=== PATIENT | female | born 1950 | race American Indian/Alaskan Native ===

== ENCOUNTER 2016-08-20 03:59 | Emergency (ER) | payer MEDICARE ==
[2016-08-20 05:25] LABS: Basophils % (Auto) 0.5 % (0.0-1.8); Eosinophils % (Auto) 1.1 % (0.0-4.3); Hematocrit 36.8 % (30.3-42.9); Hemoglobin 11.7 gm/dl (10.1-14.3); Mean Corpuscular HGB Conc 32 % (30-34); Mean Corpuscular Hemoglobin 27 pg (28-32); Mean Corpuscular Volume 86 fl (79-97); Platelet Count 183 K/mm3 (140-440); Red Blood Count 4.31 M/mm3 (3.65-5.03); Red Cell Distribution Width 14.1 % (13.2-15.2); White Blood Count 5.4 K/mm3 (4.5-11.0)
[2016-08-20 05:43] LABS: Alanine Aminotransferase 11 units/L (7-56); Albumin/Globulin Ratio 1.2 %; Alkaline Phosphatase 50 units/L (35-129); Anion Gap 20 mmol/L; BUN/Creatinine Ratio 14.28; Blood Urea Nitrogen 10 mg/dL (7-17); Calcium 9.9 mg/dL (8.4-10.2); Carbon Dioxide 22 mmol/L (22-30); Chloride 101.3 mmol/L (98-107); Glucose 99 mg/dL (65-100); Lipase 31 units/L (13-60); Potassium 3.2 mmol/L (3.6-5.0); Sodium 140 mmol/L (137-145); Total Protein 7.3 g/dL (6.3-8.2)
[2016-08-20 06:57] LABS: Bacteria,Urine 1+ /HPF (Negative); Bilirubin,Urine NEG (Negative); Blood,Urine NEG (Negative); Ketones,Urine NEG (Negative); Leukocyte Esterase,Urine LG (Negative); Mucus,Urine 1+ /HPF; Nitrite,Urine NEG (Negative)
[2016-08-20] MEDS ORDERED: K-DUR PO ONE (08:42)
[2016-08-20] MEDS ORDERED: CATAPRES PO ONE (09:10)
--- NOTE | 2016-08-20 09:10 | Emergency Department Report ---
ED Female HPI - General Chief complaint: Abdominal Pain Stated complaint: NOT FEELING WELL/VAG DISCHARGE Time Seen by Provider: 08/20/16 08:41 Source: patient, EMS Mode of arrival: Ambulatory Limitations: No Limitations - History of Present Illness Initial comments: 65 year old female with a past medical history hypertension, bipolar disorder, schizophrenia and previous hysterectomy presents to the hospital complains of lower abdominal pain and vaginal discharge 2 weeks. Pain is rated 4/10 in intensity, intermittent, without aggravating or alleviating factors. Unable to characterize pain. Patient complains of mild malodorous discharge. Last sexual intercourse was one month ago with a regular partner and she did not use condoms. Patient also complains of elevated blood pressure. She takes metoprolol twice a day (50mg), possibly simvastatin, and a medication that starts with Cor. She cannot recall all the names and, doses, and does not have her pills with her. Patient tells me her last dose of medication was yesterday evening. She denies headache, chest pain, shortness, dysuria, nausea, vomiting, or fever - Related Data Home Medications Medication Instructions Recorded Confirmed Last Taken Aspirin [Aspirin BABY CHEW TAB] 81 mg PO DAILY 08/18/13 03/29/14 Unknown Metoprolol [Lopressor TAB] 25 mg PO BID 08/18/13 03/29/14 Unknown Potassium Chloride [Klor-Con 10] 20 meq PO DAILY 08/18/13 03/29/14 Unknown Previous Rx's Medication Instructions Recorded Last Taken Type Amlodipine Besylate [Norvasc] 2.5 mg PO DAILY #30 tab 08/19/13 Unknown Rx Benztropine Mesylate [Benztropine 2 mg PO QDAY #30 tab 08/19/13 Unknown Rx Mesylate INJ] Diphenhydramine HCl 25 mg PO BID #60 cap 08/19/13 Unknown Rx [diphenhydrAMINE] Benztropine [Cogentin] 2 mg PO QDAY #30 tablet 10/25/15 Unknown Rx Nitrofurantoin [place]/M-Cryst 100 mg PO Q12HR #10 capsule 08/20/16 Unknown Rx [Macrobid CAP] Allergies Allergy/AdvReac Type Severity Reaction Status Date / Time No Known Allergies Allergy Verified 03/01/15 09:55 ED Review of Systems ROS: Stated complaint: NOT FEELING WELL/VAG DISCHARGE Other details as noted in HPI Comment: All other systems reviewed and negative Other: Constitutional: No fevers chills Eyes: No eye pain visual changes ENT: No ear pain or throat pain Neck: Denies pain Respiratory: Denies cough wheezing shortness of breath Cardiovascular: Denies chest pain, palpitations, syncope GI: Denies nausea, vomiting, diarrhea : Denies dysuria Musculoskeletal: Denies back stas Neurologic: Denies headache, numbness, weakness Psychiatric: Denies suicidal ideation, hallucinations ED Past Medical Hx - Past Medical History Previous Medical History?: Yes Hx Hypertension: Yes Hx Psychiatric Treatment: Yes (MANIC BIPOLAR AND SCHIZOPHRENIA and depression) - Surgical History Past Surgical History?: Yes Additional Surgical History: HYSTERECTOMY, - Social History Smoking Status: Current Every Day Smoker Substance Use Type: Alcohol, Marijuana - Medications Home Medications: Home Medications Medication Instructions Recorded Confirmed Last Taken Type Aspirin [Aspirin BABY CHEW TAB] 81 mg PO DAILY 08/18/13 03/29/14 Unknown History Metoprolol [Lopressor TAB] 25 mg PO BID 08/18/13 03/29/14 Unknown History Potassium Chloride [Klor-Con 10] 20 meq PO DAILY 08/18/13 03/29/14 Unknown History Amlodipine Besylate [Norvasc] 2.5 mg PO DAILY #30 tab 08/19/13 03/29/14 Unknown Rx Benztropine Mesylate [Benztropine 2 mg PO QDAY #30 tab 08/19/13 03/29/14 Unknown Rx Mesylate INJ] Diphenhydramine HCl 25 mg PO BID #60 cap 08/19/13 03/29/14 Unknown Rx [diphenhydrAMINE] Benztropine [Cogentin] 2 mg PO QDAY #30 tablet 10/25/15 Unknown Rx Nitrofurantoin [place]/M-Cryst 100 mg PO Q12HR #10 capsule 08/20/16 Unknown Rx [Macrobid CAP] ED Physical Exam - General Limitations: No Limitations - Other Other exam information: General: No limitations, patient is alert in no acute distress Head exam: Atraumatic, normocephalic Eyes exam: Normal appearance ENT: Moist mucous membrane, normal oropharynx Neck exam: Normal inspection, full range of motion Respiratory exam: Clear to auscultation bilateral, no wheezes, rales, crackles Cardiovascular: Normal rate and rhythm, normal heart sounds Abdomen: Soft, nondistended, and nontender, with normal bowel sounds, no rebound, or guarding : No malodorous discharge, CMT, or adnexal tenderness Extremity: Full range of motion normal inspection no deformity Back: Normal Inspection, full range of motion, no tenderness Neurologic: Alert, oriented x3, cranial nerves intact, no motor or sensory deficit Psychiatric: normal affect, normal mood Skin: Warm, dry, intact ED Course Vital Signs 08/20/16 08/20/16 08/20/16 04:27 08:34 08:45 Temperature 98.3 F 98.5 F Pulse Rate 94 H 78 Respiratory 20 16 16 Rate Blood Pressure Blood Pressure 191/106 191/101 [Right] O2 Sat by Pulse 100 100 100 Oximetry 08/20/16 08/20/16 08/20/16 09:05 10:02 11:02 Temperature Pulse Rate 78 80 70 Respiratory 16 16 Rate Blood Pressure 172/91 Blood Pressure 201/110 171/105 [Right] O2 Sat by Pulse 100 100 Oximetry 08/20/16 11:35 Temperature Pulse Rate 84 Respiratory 16 Rate Blood Pressure Blood Pressure 132/86 [Right] O2 Sat by Pulse 99 Oximetry - Reevaluation(s) Reevaluation #1: 08/20/16 09:10 meds given in ED Kcl 40meq Clonidine 0.1mg 08/20/16 11:55 Pt had minimal reduction in her BP 1 hr after clonidine therefore given her am metoprolol dose. Improved BP at this time. will d/c ED Medical Decision Making - Lab Data Result diagrams: 08/20/16 05:00 08/20/16 05:00 Lab Results 08/20/16 08/20/16 08/20/16 Range/Units 05:00 05:00 06:17 WBC 5.4 (4.5-11.0) K/mm3 RBC 4.31 (3.65-5.03) M/mm3 Hgb 11.7 (10.1-14.3) gm/dl Hct 36.8 (30.3-42.9) % MCV 86 (79-97) fl MCH 27 L (28-32) pg MCHC 32 (30-34) % RDW 14.1 (13.2-15.2) % Plt Count 183 (140-440) K/mm3 Lymph % (Auto) 35.0 (13.4-35.0) % [place] % (Auto) 6.7 (0.0-7.3) % Eos % (Auto) 1.1 (0.0-4.3) % Baso % (Auto) 0.5 (0.0-1.8) % Lymph # 1.9 (1.2-5.4) K/mm3 [place] # 0.4 (0.0-0.8) K/mm3 Eos # 0.1 (0.0-0.4) K/mm3 Baso # 0.0 (0.0-0.1) K/mm3 Seg Neutrophils % 56.7 (40.0-70.0) % Seg Neutrophils # 3.1 (1.8-7.7) K/mm3 Sodium 140 (137-145) mmol/L Potassium 3.2 L (3.6-5.0) mmol/L Chloride 101.3 (98-107) mmol/L Carbon Dioxide 22 (22-30) mmol/L Anion Gap 20 mmol/L BUN 10 (7-17) mg/dL Creatinine 0.7 (0.7-1.2) mg/dL Estimated GFR > 60 ml/min BUN/Creatinine Ratio 14.28 % Glucose 99 (65-100) mg/dL Calcium 9.9 (8.4-10.2) mg/dL Total Bilirubin 0.80 (0.1-1.2) mg/dL AST 22 (5-40) units/L ALT 11 (7-56) units/L Alkaline Phosphatase 50 (35-129) units/L Total Protein 7.3 (6.3-8.2) g/dL Albumin 4.0 (3.9-5) g/dL Albumin/Globulin Ratio 1.2 % Lipase 31 (13-60) units/L Urine Color Yellow (Yellow) Urine Turbidity Clear (Clear) Urine pH 6.0 (5.0-7.0) Ur Specific [place] 1.011 (1.003-1.030) Urine Protein 30 mg/dl (Negative) mg/dL Urine Glucose (UA) Neg (Negative) mg/dL Urine Ketones Neg (Negative) mg/dL Urine Blood Neg (Negative) Urine Nitrite Neg (Negative) Urine Bilirubin Neg (Negative) Urine Urobilinogen 2.0 (<2.0) mg/dL Ur Leukocyte Esterase Lg (Negative) Urine WBC (Auto) 86.0 H (0.0-6.0) /HPF Urine RBC (Auto) 5.0 (0.0-6.0) /HPF U Epithel Cells (Auto) 4.0 (0-13.0) /HPF Urine Bacteria (Auto) 1+ (Negative) /HPF Ur Transition Epith Cell 2 /HPF Hyaline Casts 7 /LPF Urine Mucus 1+ /HPF wet prep neg - Medical Decision Making plan to treat for uti, wet prep neg, vag exam unremarkable. Patient also received potassium for hypokalemia. Patient be recommended to continue her current BP medications and to follow-up as outpatient for medication adjustment since I am unable to verify her current medication list - Differential Diagnosis vaginitis, cervicitis, uti, htn emergency vs urgency Critical Care Time: No Critical care attestation.: If time is entered above; I have spent that time in minutes in the direct care of this critically ill patient, excluding procedure time. ED Disposition Clinical Impression: UTI (urinary tract infection), Uncontrolled hypertension, Hypokalemia Disposition: DISCHARGED TO HOME OR SELFCARE Is pt being admited?: No Does the pt Need Aspirin: No Condition: Stable Instructions: Hypertension (ED), Urinary Tract Infection in Women (ED), Hypokalemia (ED) Additional Instructions: Take the medication as prescribed. Return if symptoms worsen. Continue to monitor your blood pressure and take your medication. Follow up with your doctor or the doctors provider for further workup and evaluation.Your gonorrhea and chlamydia tests are pending and take approximately 3-4 days result. You may obtain results in medical records with a photo ID. You may also obtain results through the follow-up doctor office via medical record request. Prescriptions: Nitrofurantoin [place]/M-Cryst [Macrobid CAP] 100 mg PO Q12HR #10 capsule Referrals: PRIMARY CARE, [Primary Care Provider] - 3-5 Days JOELLE KING MD [Staff Physician] - 3-5 Days (ACQUISITIONS EDITOR) FELA HARDING MD [Staff Physician] - 3-5 Days (Primary care doctor ) Time of Disposition: 12:02
[2016-08-20] MEDS ORDERED: MACROBID PO ONE (10:12)
[2016-08-20] MEDS ORDERED: LOPRESSOR PO ONE (10:46)
[2016-08-20 11:36] VITALS: BP 132/86
== END 2016-08-20 12:10 | disposition home or self-care (01) ==
LOC: ED 03:59
DX: N39.0 Urinary tract infection, site not specified (principal); I10 Essential (primary) hypertension; E87.6 Hypokalemia; F17.200 Nicotine dependence, unspecified, uncomplicated; F12.10 Cannabis abuse, uncomplicated
CPT/HCPCS: 36415; 80053; 81001; 83690; 85025; 87210; 87591; 99284

== ENCOUNTER 2016-09-05 14:56 | Emergency (ER) | payer MEDICARE ==
[2016-09-05 15:44] LABS: Basophils % (Auto) 1.4 % (0.0-1.8); Eosinophils % (Auto) 1.4 % (0.0-4.3); Hematocrit 35.9 % (30.3-42.9); Hemoglobin 11.6 gm/dl (10.1-14.3); Mean Corpuscular HGB Conc 32 % (30-34); Mean Corpuscular Hemoglobin 27 pg (28-32); Mean Corpuscular Volume 85 fl (79-97); Platelet Count 188 K/mm3 (140-440); Red Blood Count 4.25 M/mm3 (3.65-5.03); Red Cell Distribution Width 14.1 % (13.2-15.2); White Blood Count 8.1 K/mm3 (4.5-11.0)
[2016-09-05 16:03] LABS: Anion Gap 17 mmol/L; BUN/Creatinine Ratio 15.71; Blood Urea Nitrogen 11 mg/dL (7-17); Calcium 9.5 mg/dL (8.4-10.2); Carbon Dioxide 24 mmol/L (22-30); Chloride 101.1 mmol/L (98-107); Glucose 96 mg/dL (65-100); Sodium 139 mmol/L (137-145)
[2016-09-05 18:34] LABS: Urine Drugs of Abuse Note Disclamer
[2016-09-05 18:55] LABS: Bilirubin,Urine NEG (Negative); Blood,Urine NEG (Negative); Ketones,Urine NEG (Negative); Leukocyte Esterase,Urine LG (Negative); Mucus,Urine FEW /HPF; Nitrite,Urine NEG (Negative); Protein,Urine <15 mg/dL mg/dL (Negative); Urobilinogen,Urine < 2.0 mg/dL (<2.0)
[2016-09-06] MEDS ORDERED: LOPRESSOR ONE (01:47)
[2016-09-06] MEDS ORDERED: LOPRESSOR PO ONE (01:49)
[2016-09-06 02:41] VITALS: BP 127/78
[2016-09-06] MEDS ORDERED: K-DUR PO ONE (02:54)
--- NOTE | 2016-09-06 02:55 | Emergency Department Report ---
HPI - General Chief Complaint: High BP Time Seen by Provider: 09/06/16 02:46 - HPI HPI: Room 6 The patient is a 65-year-old female presenting with a chief complaint of hypertension and schizophrenia. The patient states she came to the emergency department because she was hungry and her blood pressure was elevated. The patient states she's been compliant with her blood pressure medication. Patient also knowledges auditory or visual hallucinations but will not give me a time frame when her symptoms began. Patient denies suicidal or homicidal ideation. 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 with." Location: Mental state, see above Duration: Unknown Quality: Unresponsive, auditory/visual hallucinations Severity: Moderate Modifying factors: [see above] Context: [see above] Mode of transportation: Unknown ED Past Medical Hx - Past Medical History Previous Medical History?: Yes Hx Hypertension: Yes Hx Psychiatric Treatment: Yes (MANIC BIPOLAR AND SCHIZOPHRENIA and depression) - Surgical History Past Surgical History?: Yes Additional Surgical History: HYSTERECTOMY, - Family History Family history: no significant - Social History Smoking Status: Current Every Day Smoker (1/2 pack per day) Substance Use Type: Alcohol (occasional), Marijuana - Medications Home Medications: Home Medications Medication Instructions Recorded Confirmed Last Taken Type Aspirin [Aspirin BABY CHEW TAB] 81 mg PO DAILY 08/18/13 03/29/14 Unknown History Metoprolol [Lopressor TAB] 25 mg PO BID 08/18/13 03/29/14 Unknown History Potassium Chloride [Klor-Con 10] 20 meq PO DAILY 08/18/13 03/29/14 Unknown History Amlodipine Besylate [Norvasc] 2.5 mg PO DAILY #30 tab 08/19/13 03/29/14 Unknown Rx Benztropine Mesylate [Benztropine 2 mg PO QDAY #30 tab 08/19/13 03/29/14 Unknown Rx Mesylate INJ] Diphenhydramine HCl 25 mg PO BID #60 cap 08/19/13 03/29/14 Unknown Rx [diphenhydrAMINE] Benztropine [Cogentin] 2 mg PO QDAY #30 tablet 10/25/15 Unknown Rx Nitrofurantoin [place]/M-Cryst 100 mg PO Q12HR #10 capsule 08/20/16 Unknown Rx [Macrobid CAP] amLODIPine [Norvasc] 5 mg PO DAILY #30 tab 09/06/16 Unknown Rx ED Review of Systems ROS: Stated complaint: NECK PAIN/NUMBNESS ALL OVER Other details as noted in HPI Comment: All other systems reviewed and negative Constitutional: denies: chills, fever Eyes: denies: eye pain, eye discharge, vision change ENT: denies: ear pain, throat pain Respiratory: denies: cough, shortness of breath, wheezing Cardiovascular: denies: chest pain, palpitations Endocrine: no symptoms reported Gastrointestinal: denies: abdominal pain, nausea, diarrhea Genitourinary: denies: urgency, dysuria, discharge Musculoskeletal: myalgia Skin: denies: rash, lesions Neurological: denies: headache, weakness, paresthesias Psychiatric: auditory hallucinations, visual hallucinations. denies: homicidal thoughts, suicidal thoughts Hematological/Lymphatic: denies: easy bleeding, easy bruising Physical Exam - Physical Exam Vital Signs: Vital Signs 09/05/16 09/06/16 09/06/16 15:10 01:39 01:50 Temperature 98.4 F 98.4 F Pulse Rate 82 79 79 Respiratory 16 20 Rate Blood Pressure 174/99 196/100 196/110 Blood Pressure [Left] O2 Sat by Pulse 100 100 Oximetry 09/06/16 02:41 Temperature Pulse Rate Respiratory 16 Rate Blood Pressure Blood Pressure 127/78 [Left] O2 Sat by Pulse 99 Oximetry Physical Exam: GENERAL: The patient is well-developed well-nourished female lying on stretcher not appearing to be in acute distress. [] HEENT: Normocephalic. Atraumatic. Extraocular motions are intact. Patient has moist mucous membranes. NECK: Supple. No meningitic signs are noted. Trachea midline CHEST/LUNGS: Clear to auscultation. There is no respiratory distress noted. HEART/CARDIOVASCULAR: Regular. There is no tachycardia. There is no gallop rub or murmur. ABDOMEN: Abdomen is soft, nontender. Patient has normal bowel sounds. There is no abdominal distention. SKIN: There is no rash. There is no edema. There is no diaphoresis. NEURO: The patient is awake, alert, and oriented. The patient is cooperative. The patient has no focal neurologic deficits. The patient has normal speech. Cranial nerves II through XII grossly intact, no drift MUSCULOSKELETAL: There is no evidence of acute injury. ED Course Vital Signs 09/05/16 09/06/16 09/06/16 15:10 01:39 01:50 Temperature 98.4 F 98.4 F Pulse Rate 82 79 79 Respiratory 16 20 Rate Blood Pressure 174/99 196/100 196/110 Blood Pressure [Left] O2 Sat by Pulse 100 100 Oximetry 09/06/16 02:41 Temperature Pulse Rate Respiratory 16 Rate Blood Pressure Blood Pressure 127/78 [Left] O2 Sat by Pulse 99 Oximetry - Consultations Consultation #1: 09/06/16 04:16 Case discussed with mental health building energy consultant. Patient does not meet inpatient criteria. May be discharged home ED Medical Decision Making - Lab Data Result diagrams: 09/05/16 15:33 09/05/16 15:33 Laboratory Tests 09/05/16 09/05/16 09/05/16 15:33 15:33 15:33 WBC 8.1 RBC 4.25 Hgb 11.6 Hct 35.9 MCV 85 MCH 27 L MCHC 32 RDW 14.1 Plt Count 188 Lymph % (Auto) 37.3 H [place] % (Auto) 6.4 Eos % (Auto) 1.4 Baso % (Auto) 1.4 Lymph # 3.0 [place] # 0.5 Eos # 0.1 Baso # 0.1 Seg Neutrophils % 53.5 Seg Neutrophils # 4.4 Sodium 139 Potassium 3.0 L Chloride 101.1 Carbon Dioxide 24 Anion Gap 17 BUN 11 Creatinine 0.7 Estimated GFR > 60 BUN/Creatinine Ratio 15.71 Glucose 96 Calcium 9.5 Urine Color Urine Turbidity Urine pH Ur Specific [place] Urine Protein Urine Glucose (UA) Urine Ketones Urine Blood Urine Nitrite Urine Bilirubin Urine Urobilinogen Ur Leukocyte Esterase Urine WBC (Auto) Urine RBC (Auto) U Epithel Cells (Auto) Urine Mucus Urine Opiates Screen Urine Methadone Screen Ur Barbiturates Screen Ur Phencyclidine Scrn Ur Amphetamines Screen U Benzodiazepines Scrn Urine Cocaine Screen U Marijuana (THC) Screen Drugs of Abuse Note Plasma/Serum Alcohol < 0.01 09/05/16 09/05/16 Unknown Unknown WBC RBC Hgb Hct MCV MCH MCHC RDW Plt Count Lymph % (Auto) [place] % (Auto) Eos % (Auto) Baso % (Auto) Lymph # [place] # Eos # Baso # Seg Neutrophils % Seg Neutrophils # Sodium Potassium Chloride Carbon Dioxide Anion Gap BUN Creatinine Estimated GFR BUN/Creatinine Ratio Glucose Calcium Urine Color Yellow Urine Turbidity Clear Urine pH 7.0 Ur Specific [place] 1.009 Urine Protein <15 mg/dl Urine Glucose (UA) Neg Urine Ketones Neg Urine Blood Neg Urine Nitrite Neg Urine Bilirubin Neg Urine Urobilinogen < 2.0 Ur Leukocyte Esterase Lg Urine WBC (Auto) 47.0 H Urine RBC (Auto) 1.0 U Epithel Cells (Auto) 4.0 Urine Mucus Few Urine Opiates Screen Presumptive negative Urine Methadone Screen Presumptive negative Ur Barbiturates Screen Presumptive negative Ur Phencyclidine Scrn Presumptive negative Ur Amphetamines Screen Presumptive negative U Benzodiazepines Scrn Presumptive negative Urine Cocaine Screen Presumptive negative U Marijuana (THC) Screen Presumptive negative Drugs of Abuse Note Disclamer Plasma/Serum Alcohol - EKG Data -: EKG Interpreted by Me EKG shows normal: sinus rhythm Rate: normal - EKG Data When compared to previous EKG there are: previous EKG unavailable Interpretation: other (no ischemic changes seen) - Differential Diagnosis schizophrenia, hypertension Critical care attestation.: If time is entered above; I have spent that time in minutes in the direct care of this critically ill patient, excluding procedure time. ED Disposition Clinical Impression: Hypertension, Schizophrenia, Hypokalemia Disposition: DISCHARGED TO HOME OR SELFCARE Is pt being admited?: No Does the pt Need Aspirin: No Condition: Stable Instructions: Hypertension (ED) Additional Instructions: Return to the emergency department immediately should you develop worsening symptoms, fever, inability to tolerate food or liquid or any other concerns. Prescriptions: amLODIPine [Norvasc] 5 mg PO DAILY #30 tab Referrals: HIGINIO SESAY MD [Primary Care Provider] - 3-[address] [facility] [Outside] - 3-5 Days Time of Disposition: 04:17
== END 2016-09-06 04:35 | disposition home or self-care (01) ==
LOC: ED 14:56
DX: I10 Essential (primary) hypertension (principal); F20.9 Schizophrenia, unspecified; E87.6 Hypokalemia; F31.9 Bipolar disorder, unspecified; F17.210 Nicotine dependence, cigarettes, uncomplicated; F12.10 Cannabis abuse, uncomplicated; Z79.82 Long term (current) use of aspirin
CPT/HCPCS: 36415; 80048; 80307; 81001; 85025; 93005; 93010; 99284; G0480; 80320

== ENCOUNTER 2017-03-29 16:39 | Emergency (ER) | payer MEDICARE ==
[2017-03-29] MEDS ORDERED: LOPRESSOR PO ONE (17:05)
--- NOTE | 2017-03-29 17:06 | Emergency Department Report ---
Chief Complaint: High BP Stated Complaint: HYPERTENSION - HPI History of Present Illness: 66-year-old female past medical history hypertension, psychiatric disease presents with complaint of being out of her blood pressure medicine for over one week. Patient also states that she is having some dysuria and vaginal discharge. Patient states she is currently sexually active. Also complaining of bilateral foot and arm pain denies fevers chills nausea or vomiting. Denies active chest pain or shortness of breath or headache. - ROS Review of Systems: Ran out of her metoprolol over 1 week ago - Exam Vital Signs: Vital Signs 03/29/17 16:52 Temperature 98.3 F Pulse Rate 104 H Respiratory 20 Rate Blood Pressure 181/112 O2 Sat by Pulse 99 Oximetry Physical Exam: Awake alert and oriented 3, visible tongue fasciculations MSE screening note: Focused history and physical exam performed. Due to findings the following was ordered: Screening Assessment/Plan/Differential Dx: Need for hypertension medication, possible UTI versus STD 1- This initial assessment/diagnostic orders/clinical plan/ treatment(s) is/are subject to change based on pt's health status, clinical progression and re- assessment by fellow clinical providers in the ED. Further treatment and workup at subsequent clinical provers discretion. Patient/guardians urged not to elope from ED as their condition may be serious if not clinically assessed and managed. 2-patient states she has not taken metoprolol in over one week we'll give her dose now as BP is 180 systolic and 112 diasystolic 3-urinalysis, urine culture ED Disposition for MSE Condition: Stable
[2017-03-29 17:49] LABS: Bilirubin,Urine NEG (Negative); Blood,Urine NEG (Negative); Ketones,Urine NEG (Negative); Leukocyte Esterase,Urine LG (Negative); Mucus,Urine FEW /HPF; Nitrite,Urine NEG (Negative); Protein,Urine <15 mg/dL mg/dL (Negative); Renal Epithelial Cells,Urine 2 /LPF; Urobilinogen,Urine < 2.0 mg/dL (<2.0)
--- NOTE | 2017-03-30 06:47 | Emergency Department Report ---
ED General Adult HPI - General Chief complaint: High BP Stated complaint: HYPERTENSION Time Seen by Provider: 03/30/17 06:39 Source: EMS Mode of arrival: Ambulatory Limitations: Physical Limitation - History of Present Illness Initial comments: Ms. Mg is a 66 years old female history of schizophrenia and hypertension. She came today stating that her blood pressure is high and she is out of her blood pressure medication. Patient stated that she is taking metoprolol 50 mg twice a day. She denied any headache, weakness, numbness or tingling sensation or bowel or bladder incontinence. Patient denied chest pain. - Related Data Home Medications Medication Instructions Recorded Confirmed Last Taken Aspirin [Aspirin BABY CHEW TAB] 81 mg PO DAILY 08/18/13 03/29/14 Unknown Metoprolol [Lopressor TAB] 25 mg PO BID 08/18/13 03/29/14 Unknown Potassium Chloride [Klor-Con 10] 20 meq PO DAILY 08/18/13 03/29/14 Unknown Previous Rx's Medication Instructions Recorded Last Taken Type Amlodipine Besylate [Norvasc] 2.5 mg PO DAILY #30 tab 08/19/13 Unknown Rx Benztropine Mesylate [Benztropine 2 mg PO QDAY #30 tab 08/19/13 Unknown Rx Mesylate INJ] Diphenhydramine HCl 25 mg PO BID #60 cap 08/19/13 Unknown Rx [diphenhydrAMINE] Benztropine [Cogentin] 2 mg PO QDAY #30 tablet 10/25/15 Unknown Rx Nitrofurantoin [place]/M-Cryst 100 mg PO Q12HR #10 capsule 08/20/16 Unknown Rx [Macrobid CAP] amLODIPine [Norvasc] 5 mg PO DAILY #30 tab 09/06/16 Unknown Rx Allergies Allergy/AdvReac Type Severity Reaction Status Date / Time No Known Allergies Allergy Verified 03/01/15 09:55 ED Review of Systems ROS: Stated complaint: HYPERTENSION Other details as noted in HPI Comment: All other systems reviewed and negative Constitutional: denies: chills, fever Respiratory: denies: cough, orthopnea, shortness of breath, SOB with exertion Cardiovascular: denies: chest pain, palpitations, dyspnea on exertion Gastrointestinal: denies: abdominal pain, nausea, vomiting, diarrhea, constipation, hematemesis, melena, hematochezia Musculoskeletal: denies: back pain, joint swelling Neurological: denies: headache, weakness, numbness, paresthesias, confusion, abnormal gait, vertigo Psychiatric: denies: depression ED Past Medical Hx - Past Medical History Previous Medical History?: Yes Hx Hypertension: Yes Hx Psychiatric Treatment: Yes (MANIC BIPOLAR AND SCHIZOPHRENIA and depression) - Surgical History Past Surgical History?: Yes Additional Surgical History: HYSTERECTOMY, - Social History Smoking Status: Current Every Day Smoker Substance Use Type: Prescribed - Medications Home Medications: Home Medications Medication Instructions Recorded Confirmed Last Taken Type Aspirin [Aspirin BABY CHEW TAB] 81 mg PO DAILY 08/18/13 03/29/14 Unknown History Metoprolol [Lopressor TAB] 25 mg PO BID 08/18/13 03/29/14 Unknown History Potassium Chloride [Klor-Con 10] 20 meq PO DAILY 08/18/13 03/29/14 Unknown History Amlodipine Besylate [Norvasc] 2.5 mg PO DAILY #30 tab 08/19/13 03/29/14 Unknown Rx Benztropine Mesylate [Benztropine 2 mg PO QDAY #30 tab 08/19/13 03/29/14 Unknown Rx Mesylate INJ] Diphenhydramine HCl 25 mg PO BID #60 cap 08/19/13 03/29/14 Unknown Rx [diphenhydrAMINE] Benztropine [Cogentin] 2 mg PO QDAY #30 tablet 10/25/15 Unknown Rx Nitrofurantoin [place]/M-Cryst 100 mg PO Q12HR #10 capsule 08/20/16 Unknown Rx [Macrobid CAP] amLODIPine [Norvasc] 5 mg PO DAILY #30 tab 09/06/16 Unknown Rx ED Physical Exam - General Limitations: Physical Limitation General appearance: alert, in no apparent distress - Head Head exam: Present: atraumatic, normocephalic, normal inspection - Eye Eye exam: Present: normal appearance, PERRL Pupils: Present: normal accommodation - ENT ENT exam: Present: normal exam, normal orophraynx, mucous membranes moist - Neck Neck exam: Present: normal inspection, full ROM. Absent: tenderness, meningismus, lymphadenopathy, thyromegaly - Respiratory Respiratory exam: Present: normal lung sounds bilaterally. Absent: respiratory distress, wheezes, rales, rhonchi, stridor, chest wall tenderness, accessory muscle use, decreased breath sounds, prolonged expiratory - Cardiovascular Cardiovascular Exam: Present: regular rate, normal rhythm, normal heart sounds - GI/Abdominal GI/Abdominal exam: Present: soft, normal bowel sounds. Absent: distended, tenderness, guarding, rebound, rigid, organomegaly, mass, bruit, pulsatile mass , hernia - Extremities Exam Extremities exam: Present: normal inspection, full ROM, normal capillary refill - Back Exam Back exam: Present: normal inspection. Absent: CVA tenderness (R), CVA tenderness (L) - Neurological Exam Neurological exam: Present: alert, oriented X3, CN II-XII intact, normal gait - Skin Skin exam: Present: warm, intact, normal color. Absent: cyanosis, diaphoretic, erythema ED Course Vital Signs 03/29/17 03/29/17 03/29/17 16:52 17:16 23:35 Temperature 98.3 F 98.4 F Pulse Rate 104 H 104 H 78 Respiratory 20 18 Rate Blood Pressure 181/112 118/112 Blood Pressure 186/89 [Left] O2 Sat by Pulse 99 99 Oximetry 03/30/17 03/30/17 03/30/17 00:00 02:00 03:00 Temperature Pulse Rate 76 70 Respiratory 21 20 17 Rate Blood Pressure 166/86 194/92 176/82 Blood Pressure [Left] O2 Sat by Pulse 99 100 100 Oximetry 03/30/17 03/30/17 03/30/17 04:00 06:00 06:30 Temperature Pulse Rate 75 78 97 H Respiratory 19 15 24 Rate Blood Pressure 146/79 190/94 146/79 Blood Pressure [Left] O2 Sat by Pulse 99 100 Oximetry 03/30/17 07:27 Temperature Pulse Rate Respiratory Rate Blood Pressure 191/107 Blood Pressure [Left] O2 Sat by Pulse Oximetry - Reevaluation(s) Reevaluation #1: 03/30/17 09:55 Patient remained asymptomatic in the ER. Labs reviewed which showed no acute abnormalities, I will prescribe her metoprolol 50 mg twice a day and now started on ciprofloxacin for her bladder infection. ED Medical Decision Making - Lab Data Result diagrams: 03/30/17 06:40 03/30/17 06:40 Critical care attestation.: If time is entered above; I have spent that time in minutes in the direct care of this critically ill patient, excluding procedure time. ED Disposition Clinical Impression: Malignant hypertension, UTI (urinary tract infection) Disposition: DC- TO HOME OR SELFCARE Is pt being admited?: No Condition: Stable Instructions: Hypertension (ED), Urinary Tract Infection in Women (ED) Referrals: JAKE GOMES MD [Primary Care Provider] - 3-5 Days
[2017-03-30 07:51] LABS: Basophils % (Auto) 0.4 % (0.0-1.8); Eosinophils % (Auto) 0.8 % (0.0-4.3); Hematocrit 36.6 % (30.3-42.9); Hemoglobin 11.9 gm/dl (10.1-14.3); Mean Corpuscular HGB Conc 32 % (30-34); Mean Corpuscular Hemoglobin 28 pg (28-32); Mean Corpuscular Volume 85 fl (79-97); Platelet Count 199 K/mm3 (140-440); Red Blood Count 4.32 M/mm3 (3.65-5.03); Red Cell Distribution Width 14.2 % (13.2-15.2); White Blood Count 6.8 K/mm3 (4.5-11.0)
[2017-03-30 07:53] VITALS: BP 191/107
[2017-03-30 08:04] LABS: Alanine Aminotransferase 10 units/L (7-56); Albumin 4.1 g/dL (3.9-5); Albumin/Globulin Ratio 1.5 %; Alkaline Phosphatase 52 units/L (35-129); Anion Gap 18 mmol/L; BUN/Creatinine Ratio 23; Blood Urea Nitrogen 16 mg/dL (7-17); Calcium 9.3 mg/dL (8.4-10.2); Carbon Dioxide 24 mmol/L (22-30); Chloride 103.2 mmol/L (98-107); Glucose 103 mg/dL (65-100); Potassium 3.8 mmol/L (3.6-5.0); Sodium 141 mmol/L (137-145); Total Protein 6.9 g/dL (6.3-8.2)
== END 2017-03-30 11:01 | disposition home or self-care (01) ==
LOC: ED 16:39
DX: I10 Essential (primary) hypertension (principal); N39.0 Urinary tract infection, site not specified; F17.200 Nicotine dependence, unspecified, uncomplicated
CPT/HCPCS: 36415; 80053; 81001; 85025; 87086

== ENCOUNTER 2017-09-09 20:24 | Emergency (ER) | payer MEDICARE ==
[2017-09-09 21:37] LABS: Basophils % (Auto) 0.4 % (0.0-1.8); Eosinophils % (Auto) 0.5 % (0.0-4.3); Hematocrit 36.8 % (30.3-42.9); Hemoglobin 12.3 gm/dl (10.1-14.3); Lymphocytes # (Auto) 1.8 K/mm3 (1.2-5.4); Lymphocytes % (Auto) 29.9 % (13.4-35.0); Mean Corpuscular HGB Conc 34 % (30-34); Mean Corpuscular Hemoglobin 28 pg (28-32); Mean Corpuscular Volume 83 fl (79-97); Monocytes # (Auto) 0.4 K/mm3 (0.0-0.8); Monocytes % (Auto) 7.6 % (0.0-7.3); Platelet Count 290 K/mm3 (140-440); Red Blood Count 4.45 M/mm3 (3.65-5.03); Red Cell Distribution Width 13.9 % (13.2-15.2)
[2017-09-09 21:48] LABS: INR 0.95 (0.87-1.13)
[2017-09-09 21:49] LABS: Partial Thromboplastin Time 32.1 Sec. (24.2-36.6)
[2017-09-09 22:16] LABS: BUN/Creatinine Ratio 13; Blood Urea Nitrogen 12 mg/dL (7-17); Calcium 9.9 mg/dL (8.4-10.2); Hemolysis Index 7
--- NOTE | 2017-09-10 00:17 | Cat Scan Report ---
FINAL REPORT EXAM: CT HEAD/BRAIN WO CON HISTORY: neuro deficits < 6hrs or sx present upon awakening TECHNIQUE: Standard unenhanced CT of the head at 5.0 millimeter axial increments. PRIORS: None. FINDINGS: The ventricular system is normal in size and configuration. There is central atrophy. 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 Small vessel ischemic changes are present in the periventricular white matter. There is no evidence for mass lesion, mass effect, midline shift, acute intracranial hemorrhage, or acute ischemia/ infarction. No evidence for acute skull fracture is seen. No abnormality in the overlying scalp soft tissues is seen. Visualized paranasal sinuses are clear. IMPRESSION: Remote lacunar infarcts and small vessel ischemic changes bilaterally. Central atrophy. No acute intracranial process noted.
[2017-09-10 01:52] VITALS: BP 110/80
--- NOTE | 2017-09-10 02:33 | Emergency Department Report ---
HPI - General Chief Complaint: Nausea/Vomiting/Diarrhea Time Seen by Provider: 09/10/17 00:37 - HPI HPI: 66-year-old female presents to the emergency department by EMS with complaint of some nausea with one episode of vomiting. The patient says that she threw up her lunch today and had some weakness at this time. However the patient also says that she has been having some weakness for "years." She denies any fever, chest pain, shortness of breath, abdominal pain, dysuria, vaginal bleeding or discharge. She did not take anything for her symptoms prior to presentation. She did not receive anything in route. Currently the patient says she is feeling better and asking for some apple juice. She has a past medical history of hypertension and has a psychiatric history of bipolar disorder and schizophrenia. She previously had a hysterectomy and a . Her primary care physician is Dr. Allen Badillo. No recent travel or sick contacts at home. ED Past Medical Hx - Past Medical History Previous Medical History?: Yes Hx Hypertension: Yes Hx Psychiatric Treatment: Yes (MANIC BIPOLAR AND SCHIZOPHRENIA and depression) - Surgical History Past Surgical History?: Yes Additional Surgical History: HYSTERECTOMY, - Social History Smoking Status: Current Some Day Smoker Substance Use Type: None - Medications Home Medications: Home Medications Medication Instructions Recorded Confirmed Last Taken Type Aspirin [Aspirin BABY CHEW TAB] 81 mg PO DAILY 08/18/13 03/29/14 Unknown History Metoprolol [Lopressor TAB] 25 mg PO BID 08/18/13 03/29/14 Unknown History Potassium Chloride [Klor-Con 10] 20 meq PO DAILY 08/18/13 03/29/14 Unknown History Amlodipine Besylate [Norvasc] 2.5 mg PO DAILY #30 tab 08/19/13 03/29/14 Unknown Rx Benztropine Mesylate [Benztropine 2 mg PO QDAY #30 tab 08/19/13 03/29/14 Unknown Rx Mesylate INJ] Diphenhydramine HCl 25 mg PO BID #60 cap 08/19/13 03/29/14 Unknown Rx [diphenhydrAMINE] Benztropine [Cogentin] 2 mg PO QDAY #30 tablet 10/25/15 Unknown Rx Nitrofurantoin [place]/M-Cryst 100 mg PO Q12HR #10 capsule 08/20/16 Unknown Rx [Macrobid CAP] amLODIPine [Norvasc] 5 mg PO DAILY #30 tab 09/06/16 Unknown Rx Ciprofloxacin HCl [Ciprofloxacin 500 mg PO Q12H #14 tab 03/30/17 Unknown Rx TAB] Metoprolol [Lopressor TAB] 50 mg PO BID #60 tablet 03/30/17 Unknown Rx ED Review of Systems ROS: Stated complaint: NAUSEA,HYPERTENSION Other details as noted in HPI Constitutional: weakness. denies: fever Eyes: denies: eye pain, eye discharge, vision change ENT: denies: ear pain, throat pain Respiratory: denies: cough, shortness of breath, wheezing Cardiovascular: denies: chest pain, palpitations Gastrointestinal: nausea, vomiting Genitourinary: denies: urgency, dysuria, discharge Musculoskeletal: denies: back pain, joint swelling, arthralgia Skin: denies: rash, lesions Neurological: denies: headache, numbness, paresthesias Physical Exam - Physical Exam Vital Signs: Vital Signs 09/09/17 09/10/17 09/10/17 20:30 01:51 01:53 Temperature 97.6 F Pulse Rate 66 72 Respiratory 18 20 20 Rate Blood Pressure 107/74 Blood Pressure 110/80 [Right] O2 Sat by Pulse 98 100 Oximetry Physical Exam: GENERAL: The patient is well-developed well-nourished. HENT: Normocephalic. Patient has moist mucous membranes. EYES: Extraocular motions are intact. Pupils equal reactive to light bilaterally. NECK: Supple. Trachea is midline. CHEST/LUNGS: Clear to auscultation. There is no respiratory distress noted. HEART/CARDIOVASCULAR: Regular. There is no tachycardia. There is no murmur. ABDOMEN: Abdomen is soft, nontender. Patient has normal bowel sounds. There is no abdominal distention. SKIN: There is a very mild amount of swelling to the right upper cheek bone with mild ecchymosis. No laceration or bleeding. NEURO: The patient is awake, alert, and oriented. The patient is cooperative. No motor or sensory deficits. CN II - XII intact. No gait abnormalities. MUSCULOSKELETAL: There is no tenderness or deformity. There is no limitation range of motion. There is no evidence of acute injury. ED Course Vital Signs 09/09/17 09/10/17 09/10/17 20:30 01:51 01:53 Temperature 97.6 F Pulse Rate 66 72 Respiratory 18 20 20 Rate Blood Pressure 107/74 Blood Pressure 110/80 [Right] O2 Sat by Pulse 98 100 Oximetry ED Medical Decision Making - Lab Data Result diagrams: 09/09/17 21:09 09/09/17 21:09 - EKG Data -: EKG Interpreted by Me EKG shows normal: sinus rhythm, axis, intervals, QRS complexes (LVH), ST-T waves Rate: normal - EKG Data When compared to previous EKG there are: previous EKG unavailable Interpretation: LVH - Radiology Data Radiology results: report reviewed CT of the head shows a remote lacunar infarct and small vessel disease bilaterally. No acute intracranial process noted. - Medical Decision Making The patient came in secondary to nausea and vomiting. She describes some generalized weakness but it has been chronic for her. She is seen ambulating throughout the emergency department and appears stable. Her NIHSS is a 0. CT of the head shows remote lacunar infarct but no acute intracranial process. Labs are mostly unremarkable. EKG did not show any STEMI or any significant dysrythmia. When I attempted to get a TSH and some urine, the patient did not want any more labs or workup done and is asking for discharge. She has good follow up with a PCP. She has been encouraged to return to the ED with any worsening of her symptoms or any acute distress. Vitals stable during her ED course. Critical Care Time: No Critical care attestation.: If time is entered above; I have spent that time in minutes in the direct care of this critically ill patient, excluding procedure time. ED Disposition Clinical Impression: Generalized weakness Nausea & vomiting Qualifiers: Vomiting type: unspecified Vomiting Intractability: unspecified Qualified Code( s): R11.2 - Nausea with vomiting, unspecified Disposition: DC-01 TO HOME OR SELFCARE Is pt being admited?: No Condition: Stable Instructions: Acute Nausea and Vomiting (ED), Weakness (ED) Additional Instructions: Please follow-up with your primary care physician in the next few days. Return to the emergency Department with any worsening of your symptoms are any acute distress. I have given you a referral for a local neurologist, Dr. Bautista, to follow up regarding the CT findings of a remote infarct in the brain. Referrals: PRIMARY MD JAMES [Primary Care Provider] - 3-5 Days ISA BAUTISTA MD [Staff Physician] - 3-5 Days Time of Disposition: 02:36
== END 2017-09-10 03:14 | disposition home or self-care (01) ==
LOC: ED 20:24
DX: R11.2 Nausea with vomiting, unspecified (principal); R53.1 Weakness; I10 Essential (primary) hypertension; F17.200 Nicotine dependence, unspecified, uncomplicated; Z79.82 Long term (current) use of aspirin
CPT/HCPCS: 36415; 70450; 80048; 84484; 85025; 85610; 85670; 85730; 93005; 93010; 99285

== ENCOUNTER 2017-09-25 18:21 | Emergency (ER) | payer MEDICARE ==
[2017-09-25] MEDS ORDERED: TORADOL IM ONE (21:22)
--- NOTE | 2017-09-25 21:41 | Emergency Department Report ---
HPI - General Chief Complaint: Extremity Injury, Lower Time Seen by Provider: 09/25/17 20:39 - HPI HPI: The patient is a 66-year-old female who presents for evaluation of leg pain and upper back pain. The patient reports 3-4 weeks of bilateral lower leg pain, mild to moderate in severity, cramping in quality, exacerbated with ambulation, improved at rest. She also has secondary complaint of upper back pain for the same duration. She denies trauma to the back or legs, swelling, color change, paresthesia, motor deficit, fever, chills, night sweats. ED Past Medical Hx - Past Medical History Previous Medical History?: Yes Hx Hypertension: Yes Hx Psychiatric Treatment: Yes (MANIC BIPOLAR AND SCHIZOPHRENIA and depression) - Surgical History Past Surgical History?: Yes Additional Surgical History: HYSTERECTOMY, - Social History Smoking Status: Current Every Day Smoker Substance Use Type: None - Medications Home Medications: Home Medications Medication Instructions Recorded Confirmed Last Taken Type Aspirin [Aspirin BABY CHEW TAB] 81 mg PO DAILY 08/18/13 03/29/14 Unknown History Metoprolol [Lopressor TAB] 25 mg PO BID 08/18/13 03/29/14 Unknown History Potassium Chloride [Klor-Con 10] 20 meq PO DAILY 08/18/13 03/29/14 Unknown History Amlodipine Besylate [Norvasc] 2.5 mg PO DAILY #30 tab 08/19/13 03/29/14 Unknown Rx Benztropine Mesylate [Benztropine 2 mg PO QDAY #30 tab 08/19/13 03/29/14 Unknown Rx Mesylate INJ] Diphenhydramine HCl 25 mg PO BID #60 cap 08/19/13 03/29/14 Unknown Rx [diphenhydrAMINE] Benztropine [Cogentin] 2 mg PO QDAY #30 tablet 10/25/15 Unknown Rx Nitrofurantoin [place]/M-Cryst 100 mg PO Q12HR #10 capsule 08/20/16 Unknown Rx [Macrobid CAP] amLODIPine [Norvasc] 5 mg PO DAILY #30 tab 09/06/16 Unknown Rx Ciprofloxacin HCl [Ciprofloxacin 500 mg PO Q12H #14 tab 03/30/17 Unknown Rx TAB] Metoprolol [Lopressor TAB] 50 mg PO BID #60 tablet 03/30/17 Unknown Rx ED Review of Systems ROS: Stated complaint: LEG PAIN Other details as noted in HPI Constitutional: denies: fever ENT: denies: throat or neck pain Respiratory: denies: cough, shortness of breath Cardiovascular: denies: chest pain Endocrine: denies unexplained weight loss or gain Gastrointestinal: denies: abdominal pain, nausea Genitourinary: denies: dysuria Musculoskeletal: reports leg and back pain denies: leg swelling Skin: denies: rash Neurological: denies: headache Hematological/Lymphatic: denies: easy bleeding or easy bruising Psych: denies sadness or hopelessness Physical Exam - Physical Exam Vital Signs: Vital Signs 09/25/17 09/25/17 18:30 20:16 Temperature 98.2 F Pulse Rate 85 80 Respiratory 14 18 Rate Blood Pressure 199/93 Blood Pressure 175/88 [Right] O2 Sat by Pulse 98 100 Oximetry Physical Exam: General: well-nourished, well-developed, no acute distress Head: Normocephalic, atraumatic Eyes: normal sclera ENT: Mucous membranes are pink and moist Neck: trachea midline, neck supple, No neck stiffness, no cervical adenopathy Respiratory: Breath sounds equal bilaterally, no wheezing, rales, or rhonchi Cardio: S1 and S2 present, no murmurs, rubs, gallops, capillary refill is brisk Abdomen: Normoactive bowel sounds, soft abdomen, no rigidity, no guarding or rebound tenderness Musc: Bilateral caudal and medial trapezius tenderness to palpation present, no midline cervical or thoracic bony tenderness over spinous process, bilateral anterior rodríguez tenderness to palpation present, there is no redness, swelling, warmth, fluctuance, crepitus, ecchymosis of the legs bilaterally, No pitting edema, leg compartments are soft and pliable, no pain with passive flexion or extension, no signs compartments syndrome Skin: No rash Neuro: no facial drooping, normal speech Psych: Normal affect ED Course Vital Signs 18 09/25/17 18:30 20:16 Temperature 98.2 F Pulse Rate 85 80 Respiratory 14 18 Rate Blood Pressure 199/93 Blood Pressure 175/88 [Right] O2 Sat by Pulse 98 100 Oximetry ED Medical Decision Making - Lab Data Result diagrams: 09/25/17 21:52 09/25/17 21:52 - Medical Decision Making The patient was seen and examined by myself. The patient is placed on a director of cardiac rehabilitation and continuous pulse ox. On initial evaluation, the patient was found to be in no distress. Evaluation orders were placed. The patient is given pain medicine. Lab results revealed mild leukocytosis, WBC 12, and otherwise labs are unremarkable. The patient was given blood pressure medicine. The patient signed out AMA prior to resolution of hypertension. Critical care attestation.: If time is entered above; I have spent that time in minutes in the direct care of this critically ill patient, excluding procedure time. ED Disposition Clinical Impression: Bilateral lower extremity pain, Acute upper back pain, Hypertensive urgency Disposition: DC-07 LEFT AGAINST MED ADVICE Is pt being admited?: No Does the pt Need Aspirin: No Instructions: Chronic Hypertension (ED), Arthralgia (ED) Referrals: PRIMARY CAREMD [Primary Care Provider] - 3-5 Days Time of Disposition: 23:24
[2017-09-25 22:24] LABS: Basophils % (Auto) 0.3 % (0.0-1.8); Eosinophils % (Auto) 0.2 % (0.0-4.3); Hematocrit 35.6 % (30.3-42.9); Hemoglobin 11.3 gm/dl (10.1-14.3); Lymphocytes # (Auto) 3.5 K/mm3 (1.2-5.4); Lymphocytes % (Auto) 27.6 % (13.4-35.0); Mean Corpuscular HGB Conc 32 % (30-34); Mean Corpuscular Hemoglobin 28 pg (28-32); Mean Corpuscular Volume 87 fl (79-97); Monocytes % (Auto) 7.9 % (0.0-7.3); Platelet Count 236 K/mm3 (140-440); Red Blood Count 4.11 M/mm3 (3.65-5.03); Red Cell Distribution Width 14.5 % (13.2-15.2)
[2017-09-25 22:26] LABS: BUN/Creatinine Ratio 23; Blood Urea Nitrogen 14 mg/dL (7-17); Calcium 9.6 mg/dL (8.4-10.2); Hemolysis Index 8
[2017-09-25] MEDS ORDERED: APRESOLINE IV ONE (22:27)
[2017-09-25 23:24] VITALS: BP 191/100
== END 2017-09-25 23:00 | disposition left against medical advice (07) ==
LOC: ED 18:21
DX: M79.661 Pain in right lower leg (principal); M79.662 Pain in left lower leg; M54.89 Other dorsalgia; I16.0 Hypertensive urgency; F31.89 Other bipolar disorder; F17.200 Nicotine dependence, unspecified, uncomplicated; I10 Essential (primary) hypertension; Z90.710 Acquired absence of both cervix and uterus
CPT/HCPCS: 36415; 80048; 82550; 85025; 96372; 96374; 99284; J0360; J1885; 93005; 93010

== ENCOUNTER 2017-12-15 14:58 | Emergency (ER) | payer MEDICARE ==
[2017-12-15 15:43] LABS: Basophils % (Auto) 0.5 % (0.0-1.8); Eosinophils # (Auto) 0.1 K/mm3 (0.0-0.4); Hemoglobin 11.3 gm/dl (10.1-14.3); Lymphocytes # (Auto) 1.4 K/mm3 (1.2-5.4); Lymphocytes % (Auto) 29.3 % (13.4-35.0); Mean Corpuscular HGB Conc 32 % (30-34); Mean Corpuscular Hemoglobin 28 pg (28-32); Mean Corpuscular Volume 86 fl (79-97); Monocytes # (Auto) 0.4 K/mm3 (0.0-0.8); Monocytes % (Auto) 7.1 % (0.0-7.3); Platelet Count 216 K/mm3 (140-440); Red Blood Count 4.05 M/mm3 (3.65-5.03); Red Cell Distribution Width 14.3 % (13.2-15.2)
[2017-12-15 15:58] LABS: BUN/Creatinine Ratio 11; Blood Urea Nitrogen 9 mg/dL (7-17); Calcium 9.6 mg/dL (8.4-10.2); Hemolysis Index 53
[2017-12-15 16:03] LABS: INR 0.92 (0.87-1.13)
[2017-12-15 16:04] LABS: Partial Thromboplastin Time 30.8 Sec. (24.2-36.6)
--- NOTE | 2017-12-15 16:11 | Cat Scan Report ---
FINAL REPORT EXAM: CT HEAD/BRAIN WO CON HISTORY: slurred speech TECHNIQUE: CT examination of the head without IV contrast PRIORS: 09/09/2017 FINDINGS: No acute air-fluid level visualized in the included air-filled sinuses. Bone windows demonstrate no acute fracture. There is ventricular and sulcal prominence compatible with global cerebrocortical atrophy. Low attenuation regions in the cerebral white matter, while nonspecific, are present and usually attributed to chronic ischemic gliosis. It can occur secondary to the normal aging process, hypertension, or arterial sclerotic vascular disease. The differential includes demyelination in the appropriate clinical setting. The brain contains no mass, mass effect, hemorrhage, or acute infarct. There is no extra-axial intracranial bleed or brain bleed. There is no midline shift. Stable chronic lacunar infarcts are noted in the right caudate head, left caudate head, and lateral right thalamus. IMPRESSION: No acute CVA, intracranial bleed, or brain mass Stable chronic lacunar infarcts in the right caudate head, left caudate head, and lateral right thalamus
[2017-12-15 20:15] VITALS: BP 148/126
== END 2017-12-15 20:27 ==
LOC: ED 14:58
DX: R53.1 Weakness (principal); Z53.21 Procedure and treatment not carried out due to patient leaving prior to being seen by health care provider
CPT/HCPCS: 36415; 70450; 80048; 84484; 85025; 85610; 85670; 85730; 93005; 93010

== ENCOUNTER 2017-12-18 13:54 | Emergency (ER) | payer MEDICARE ==
[2017-12-18 14:14] VITALS: BP 114/68
--- NOTE | 2017-12-18 15:21 | Emergency Department Report ---
ED Medical Clearance HPI - General Chief complaint: Medical Clearance Stated complaint: HYPERTENSION Time Seen by Provider: 12/18/17 15:04 Source: patient Mode of arrival: Wheelchair - History of Present Illness Initial comments: This is a 66-year-old female nontoxic well-appearing no signs of distress persisted the ER for high blood pressure. They stated that she called paramedics because her blood pressure at home was about 180/90. Patient then stated that she does not have a blood pressure cuff to measure blood pressure but states she called paramedics to get her blood pressure readings. As per triage nurse EMS has been notified multiple times for blood pressure high but upon their evaluation there was normal blood pressure. Patient then requested to go to emergency room to give a blood pressure medication change. Patient denies any chest pain, shortness of breath, fever, chills, nausea vomiting. Patient states she does follow up with a primary care about takes metoprolol. Currently the patient has normal blood pressure. Patient denies any allergies. Associated Symptoms: denies other symptoms. denies: chest pain, shortness of breath, palpitations, diaphoresis, confusion, cough, fever/chills, headaches, anorexia, malaise, nausea/vomiting, rash, seizure, syncope, weakness Treatments Prior to Arrival: none Home medications: Home Medications Medication Instructions Recorded Confirmed Last Taken Aspirin [Aspirin BABY CHEW TAB] 81 mg PO DAILY 08/18/13 03/29/14 Unknown Metoprolol [Lopressor TAB] 25 mg PO BID 08/18/13 03/29/14 Unknown Potassium Chloride [Klor-Con 10] 20 meq PO DAILY 08/18/13 03/29/14 Unknown Previous Rx's Medication Instructions Recorded Last Taken Type Amlodipine Besylate [Norvasc] 2.5 mg PO DAILY #30 tab 08/19/13 Unknown Rx Benztropine Mesylate [Benztropine 2 mg PO QDAY #30 tab 08/19/13 Unknown Rx Mesylate INJ] diphenhydrAMINE HCl 25 mg PO BID #60 cap 08/19/13 Unknown Rx [diphenhydrAMINE] Benztropine [Cogentin] 2 mg PO QDAY #30 tablet 10/25/15 Unknown Rx Nitrofurantoin [place]/M-Cryst 100 mg PO Q12HR #10 capsule 08/20/16 Unknown Rx [Macrobid CAP] amLODIPine [Norvasc] 5 mg PO DAILY #30 tab 09/06/16 Unknown Rx Ciprofloxacin HCl [Ciprofloxacin 500 mg PO Q12H #14 tab 03/30/17 Unknown Rx TAB] Metoprolol [Lopressor TAB] 50 mg PO BID #60 tablet 03/30/17 Unknown Rx Acetaminophen [Tylenol Arthritis] 650 mg PO Q6HR PRN #30 tablet.er 10/08/17 Unknown Rx Chlorhexidine Mouthwash [Peridex] 15 ml MM BID #1 bottle 10/08/17 Unknown Rx Clindamycin [Clindamycin CAP] 300 mg PO Q6H #28 capsule 10/08/17 Unknown Rx Ibuprofen [Motrin] 600 mg PO Q8H PRN #30 tablet 10/08/17 Unknown Rx Allergies/Adverse reactions: Allergies Allergy/AdvReac Type Severity Reaction Status Date / Time No Known Allergies Allergy Verified 10/08/17 07:20 ED Review of Systems ROS: Stated complaint: HYPERTENSION Other details as noted in HPI Constitutional: denies: chills, fever Eyes: denies: eye pain, eye discharge, vision change ENT: denies: ear pain, throat pain Respiratory: denies: cough, shortness of breath, wheezing Cardiovascular: denies: chest pain, palpitations Endocrine: no symptoms reported Gastrointestinal: denies: abdominal pain, nausea, diarrhea Genitourinary: denies: urgency, dysuria, discharge Musculoskeletal: denies: back pain, joint swelling, arthralgia Skin: denies: rash, lesions Neurological: denies: headache, weakness, paresthesias Psychiatric: denies: anxiety, depression Hematological/Lymphatic: denies: easy bleeding, easy bruising ED Past Medical Hx - Past Medical History Previous Medical History?: Yes Hx Hypertension: Yes Hx Psychiatric Treatment: Yes (MANIC BIPOLAR AND SCHIZOPHRENIA and depression) - Surgical History Past Surgical History?: Yes Additional Surgical History: HYSTERECTOMY, - Social History Smoking Status: Current Every Day Smoker Substance Use Type: None - Medications Home Medications: Home Medications Medication Instructions Recorded Confirmed Last Taken Type Aspirin [Aspirin BABY CHEW TAB] 81 mg PO DAILY 08/18/13 03/29/14 Unknown History Metoprolol [Lopressor TAB] 25 mg PO BID 08/18/13 03/29/14 Unknown History Potassium Chloride [Klor-Con 10] 20 meq PO DAILY 08/18/13 03/29/14 Unknown History Amlodipine Besylate [Norvasc] 2.5 mg PO DAILY #30 tab 08/19/13 03/29/14 Unknown Rx Benztropine Mesylate [Benztropine 2 mg PO QDAY #30 tab 08/19/13 03/29/14 Unknown Rx Mesylate INJ] diphenhydrAMINE HCl 25 mg PO BID #60 cap 08/19/13 03/29/14 Unknown Rx [diphenhydrAMINE] Benztropine [Cogentin] 2 mg PO QDAY #30 tablet 10/25/15 Unknown Rx Nitrofurantoin [place]/M-Cryst 100 mg PO Q12HR #10 capsule 08/20/16 Unknown Rx [Macrobid CAP] amLODIPine [Norvasc] 5 mg PO DAILY #30 tab 09/06/16 Unknown Rx Ciprofloxacin HCl [Ciprofloxacin 500 mg PO Q12H #14 tab 03/30/17 Unknown Rx TAB] Metoprolol [Lopressor TAB] 50 mg PO BID #60 tablet 03/30/17 Unknown Rx Acetaminophen [Tylenol Arthritis] 650 mg PO Q6HR PRN #30 tablet.er 10/08/17 Unknown Rx Chlorhexidine Mouthwash [Peridex] 15 ml MM BID #1 bottle 10/08/17 Unknown Rx Clindamycin [Clindamycin CAP] 300 mg PO Q6H #28 capsule 10/08/17 Unknown Rx Ibuprofen [Motrin] 600 mg PO Q8H PRN #30 tablet 10/08/17 Unknown Rx ED Physical Exam - General Limitations: No Limitations General appearance: alert, in no apparent distress - Head Head exam: Present: atraumatic, normocephalic - Eye Eye exam: Present: normal appearance - ENT ENT exam: Present: mucous membranes moist - Neck Neck exam: Present: normal inspection - Respiratory Respiratory exam: Present: normal lung sounds bilaterally. Absent: respiratory distress, wheezes, rales, rhonchi, stridor, chest wall tenderness, accessory muscle use, decreased breath sounds, prolonged expiratory - Cardiovascular Cardiovascular Exam: Present: regular rate, normal rhythm, normal heart sounds. Absent: bradycardia, tachycardia, irregular rhythm, systolic murmur, diastolic murmur, rubs, gallop - GI/Abdominal GI/Abdominal exam: Present: soft, normal bowel sounds - Extremities Exam Extremities exam: Present: normal inspection - Back Exam Back exam: Present: normal inspection - Neurological Exam Neurological exam: Present: alert, oriented X3 - Psychiatric Psychiatric exam: Present: normal affect, normal mood - Skin Skin exam: Present: warm, dry, intact, normal color. Absent: rash ED Course Vital Signs 12/18/17 12/18/17 14:10 14:14 Temperature 98.7 F Pulse Rate 59 L Respiratory 16 Rate Blood Pressure 115/72 Blood Pressure 114/68 [Left] O2 Sat by Pulse 99 Oximetry - Reevaluation(s) Reevaluation #1: 12/18/17 15:21 Patient is speaking in full sentences with no signs of distress noted. ED Medical Decision Making - Medical Decision Making 66-year-old female that presents with concerns about hypotension. Upon examination blood pressure is within normal limits. I instructed the patient that blood pressure of 115/72 is within normal limits and that she does not have hypertension ER today. I instructed patient that she must continue taking her blood pressure medication and to buy a blood pressure cuff to monitor blood pressure at home. Patient was referred to Follow-up with a primary care doctor in 3-5 days or if symptoms worsen and continue return to emergency room as soon as possible. At time of discharge, the patient does not seem toxic or ill in appearance. No acute signs of distress noted. Patient agrees to discharge treatment plan of care. No further questions noted by the patient. ED Disposition Clinical Impression: Physically well but worried Disposition: [id number] TO HOME OR SELFCARE Is pt being admited?: No Does the pt Need Aspirin: No Condition: Stable Instructions: Hypertension (ED) Additional Instructions: Follow-up with a primary care doctor in 3-5 days or if symptoms worsen and continue return to emergency room as soon as possible. Keep a daily dairy of your blood pressure and present it to your primary care doctor. Referrals: PRIMARY MD JMAES [Referring] - 3-5 Days YOMAIRA COELHO MD [Staff Physician] - 3-5 Days [facility] [Outside] - 3-5 Days
== END 2017-12-18 15:46 | disposition home or self-care (01) ==
LOC: ED 13:54
DX: I10 Essential (primary) hypertension (principal); F31.9 Bipolar disorder, unspecified; F20.9 Schizophrenia, unspecified; F17.200 Nicotine dependence, unspecified, uncomplicated; Z90.710 Acquired absence of both cervix and uterus; Z79.82 Long term (current) use of aspirin
CPT/HCPCS: 99283